=== PATIENT | female | born 1950 | race Caucasian/White ===

== ENCOUNTER 2017-01-24 13:00 | Emergency (ER) | payer OTHER ==
[~2017-01-24] VITALS: Ht 172.7 cm; Wt 78.0 kg
[~2017-01-24 13:00] MED LIST: FLNIN NAE; MXRAIN INH; PRED50TA PO
[2017-01-24 13:03] VITALS: BP 140/72; PULSE 61; TEMP 36.6; O2SAT 99; Ht 172.7 cm; Wt 78.0 kg
[2017-01-24] MEDS ORDERED: ACET-1256 PO (14:16)
== END 2017-01-24 14:56 | disposition left against medical advice (07) ==
LOC: C.EDB 13:04 → C.EDD 14:56
DX: T14.8 Other injury of unspecified body region (principal); W57.XXXA Bitten or stung by nonvenomous insect and other nonvenomous arthropods, initial encounter